=== PATIENT | female | born 1955 | race Caucasian/White ===

== ENCOUNTER 2016-10-12 | Outpatient (CLI) | END 2016-10-12 23:55 | disposition critical access hospital (66) | CPT/HCPCS: A0425; A0427 ==

== ENCOUNTER 2016-10-13 00:25 | Emergency (ER) | payer BC ==
[2016-10-13] MEDS ORDERED: CYCLOBENZAPRINE 10 MG TABLET PO STA (01:50)
[2016-10-13] MEDS ORDERED: CYCLOBENZAPRINE 10 MG Prepack 2 PO PRN (01:50)
[2016-10-13] MEDS ORDERED: oxyCODONE/ACET 5/325 Prepack 4 PO STA (01:50)
[2016-10-13] MEDS ORDERED: fentaNYL 50 MCG PATCH TOP STA (01:51)
[2016-10-13] MEDS ORDERED: LIDOCAINE PATCH 5% TOP STA (01:52)
[2016-10-13] MEDS ORDERED: fentaNYL 100 MCG/2 ML VIAL IVP STA (01:53)
[2016-10-13] MEDS ORDERED: oxyCODONE/ACET 5/325 Prepack 4 PO ONE (01:55)
[2016-10-13] MEDS ORDERED: CYCLOBENZAPRINE 10 MG Prepack 2 PO ONE (01:55)
[2016-10-13] MEDS ORDERED: CYCLOBENZAPRINE 10 MG TABLET PO ONE (01:55)
[2016-10-13] MEDS ORDERED: fentaNYL 100 MCG/2 ML VIAL ONE (01:56)
[2016-10-13] MEDS ORDERED: LIDOCAINE PATCH 5% TOP ONE (01:56)
== END 2016-10-13 02:30 | disposition home or self-care (01) ==
DX: R07.89 Other chest pain (principal); J45.909 Unspecified asthma, uncomplicated; K21.9 Gastro-esophageal reflux disease without esophagitis; K44.9 Diaphragmatic hernia without obstruction or gangrene; M06.9 Rheumatoid arthritis, unspecified; Z90.49 Acquired absence of other specified parts of digestive tract
CPT/HCPCS: 36415; 71020; 80053; 83690; 83880; 84484; 85025; 93005; 93010; 96374; 99284; 99285; A9270